=== PATIENT | male | born 1960 | race African-American/Black ===

== ENCOUNTER 2025-01-15 18:56 | Emergency (ER) | payer MEDICAID ==
[~2025-01-15] VITALS: Ht 162.6 cm; Wt 72.6 kg
[2025-01-15 19:01] VITALS: O2SAT 100
[2025-01-15 19:39] LABS: BASOPHILS % 0.7 % (0.0-2.0); EOSINOPHILS % 2.3 % (0.0-5.0); HEMATOCRIT. 41.9 % (42.0-52.0); HEMOGLOBIN. 14.5 g/dL (14.0-18.0); LYMPHOCYTES % 47.2 % (20.0-50.0); MEAN CORPUSCULAR HEMOGLOBIN 31.1 pg (28.0-32.0); MEAN CORPUSCULAR HGB CONC 34.5 g/dL (31.0-37.0); MEAN CORPUSCULAR VOLUME 89.9 fL (80.0-94.0); MEAN PLATELET VOLUME 8.8 fl (7.4-10.4); MONOCYTES % 6.6 % (2.0-8.0); NEUTROPHILS % 43.2 % (40.0-76.0); PLATELET 214 x1000/uL (130-400); RED BLOOD CELL COUNT 4.66 mill/uL (4.7-6.1); RED CELL DISTRIBUTION WIDTH 13.4 % (11.6-14.6); WHITE BLOOD COUNT 7.3 x1000/uL (4.5-11.0)
[2025-01-15 19:41] LABS: CHLORIDE 102 mEq/L (98-107); POTASSIUM 3.5 mEq/L (3.5-5.1); PROTHROMBIN TIME 10.4 sec (9.6-11.0); SODIUM 138 mEq/L (136-145)
[2025-01-15 19:42] LABS: CALCIUM 9.2 mg/dL (8.7-10.4); CARBON DIOXIDE 27 mEq/L (21-32)
[2025-01-15 19:47] LABS: GLUCOSE 103 mg/dL (70-105); UREA NITROGEN BLOOD 10 mg/dL (9-23)
[2025-01-15] MEDS: IBUPROFEN 600MG TABLET PO ONE (20:14)
[2025-01-15 20:16] LABS: HEPATITIS B SURFACE ANTIGEN NEGATIVE (Negative)
[2025-01-15 20:37] LABS: HEPATITIS A AB IGM NEGATIVE (Negative); HEPATITIS B CORE AB IGM NEGATIVE (Negative)
[2025-01-15 20:38] LABS: HEPATITIS C AB NON REACTIVE (Neg) (Negative)
[2025-01-15 20:49] LABS: CLARITY URINE CLOUDY (CLEAR); COLOR URINE YELLOW (YELLOW); GLUCOSE URINE NEGATIVE (NEGATIVE); KETONES URINE NEGATIVE (NEGATIVE); LEUKOCYTE ESTERASE URINE NEGATIVE (NEGATIVE); NITRITE URINE NEGATIVE (NEGATIVE); OCCULT BLOOD URINE TRACE (NEGATIVE); PH URINE 8.5 (4.5-8.0); PROTEIN URINE NEGATIVE (NEGATIVE); SPECIFIC GRAVITY URINE 1.017 (1.005-1.030); UROBILINOGEN URINE 0.2 E.U./dL (0.2-1.0)
[2025-01-15 21:07] LABS: BACTERIA URINE 1+; SQUAMOUS EPITHELIAL CELL URINE 1+ /lpf (RARE/1+)
[2025-01-15 21:08] LABS: RBC URINE 0-2 /hpf (0-2); WBC URINE 0-2 /hpf (0-2)
[2025-01-15] MEDS: ACETAMINOPHEN 325MG TABLET PO ONE (21:10)
[2025-01-15] MEDS ORDERED: IBUP-1523 MT (22:43)
[2025-01-15] MEDS ORDERED: TOPUD MT (22:43)
[2025-01-15 22:46] VITALS: BP 156/96; PULSE 67; RESP 18; TEMP 36.6; O2SAT 100
== END 2025-01-15 22:57 | disposition home or self-care (01) ==
LOC: ER 18:56
DX: M17.0 Bilateral primary osteoarthritis of knee (principal); I10 Essential (primary) hypertension; Z79.899 Other long term (current) drug therapy
CPT/HCPCS: 36415; 80048; 81003; 85025; 86705; 86709; 87340; 99283

== ENCOUNTER 2025-04-04 07:19 | Emergency (ER) | payer MEDICAID, OTHER ==
[~2025-04-04] VITALS: Ht 177.8 cm; Wt 75.0 kg
[~2025-04-04 07:19] MED LIST: IBUP-1523 MT; TOPUD MT
[2025-04-04 07:26] VITALS: O2SAT 98
[2025-04-04] MEDS: IBUPROFEN 600MG TABLET PO ONE (08:09)
[2025-04-04 08:45] VITALS: BP 151/103; PULSE 70; RESP 16; TEMP 37.2; O2SAT 100
== END 2025-04-04 08:46 | disposition home or self-care (01) ==
LOC: ER 07:19
DX: R05.9 Cough, unspecified (principal); M25.512 Pain in left shoulder; I10 Essential (primary) hypertension
CPT/HCPCS: 71045; 73030; 99284